=== PATIENT | male | born 1995 | race Caucasian/White ===

== ENCOUNTER 2019-12-20 21:01 | Emergency (ER) | payer OTHER ==
[~2019-12-20] VITALS: Ht 175.3 cm; Wt 72.7 kg
[2019-12-20] MEDS ORDERED: CLAR10CA3 PO (21:12)
[2019-12-20] MEDS ORDERED: NS 1,000 ML IV ONE (21:45)
[2019-12-20 21:51] LABS: BASO % 0.4 % (0.0-1.0); EOS % 0.3 % (0.0-3.0); HEMATOCRIT 44.7 % (42.0-52.0); HEMOGLOBIN 15.9 g/dl (13.5-17.5); LYMPH # 1.5 10^3/uL (1.5-5.0); LYMPH % 14.8 % (24.0-44.0); MEAN CORPUSCULAR HEMOGLOBIN 32.1 pg (27.0-33.0); MEAN CORPUSCULAR HGB CONC 35.6 g/dl (32.0-36.5); MEAN CORPUSCULAR VOLUME 90.3 fl (80.0-96.0); MONO # 0.7 10^3/uL (0.0-0.8); MONO % 6.5 % (0.0-5.0); NEUTROPHILS % 77.8 % (36.0-66.0); PLATELET COUNT, AUTOMATED 206 10^3/uL (150-450); RED BLOOD COUNT 4.95 10^6/uL (4.30-6.10); WHITE BLOOD COUNT 10.3 10^3/uL (4.0-10.0)
[2019-12-20 22:00] LABS: INR 0.95; PROTHROMBIN TIME 12.9 SECONDS (11.8-14.0)
[2019-12-20 22:04] LABS: D-DIMER QUANT < 270 ng/ml (<500)
[2019-12-20 22:15] VITALS: BP 143/83
[2019-12-20 22:15] LABS: AMPHETAMINES LEVEL URINE NEGATIVE (NEGATIVE); BARBITURATES URINE NEGATIVE (NEGATIVE); BENZODIAZEPINES URINE NEGATIVE (NEGATIVE); CANNABINOIDS URINE NEGATIVE (NEGATIVE); COCAINE METABOLITE URINE NEGATIVE (NEGATIVE); METHADONE URINE NEGATIVE (NEGATIVE); OPIATES URINE NEGATIVE (NEGATIVE); PHENCYCLIDINE URINE NEGATIVE (NEGATIVE)
[2019-12-20 22:23] LABS: ALBUMIN 4.7 GM/DL (3.2-5.2); ALT/SGPT 54 U/L (12-78); BILIRUBIN,DIRECT 0.3 MG/DL (0.0-0.2); BILIRUBIN,TOTAL 1.1 MG/DL (0.2-1.0); BLOOD UREA NITROGEN 10 MG/DL (7-18); CALCIUM LEVEL 9.6 MG/DL (8.5-10.1); CARBON DIOXIDE LEVEL 23 MEQ/L (21-32); CHLORIDE LEVEL 103 MEQ/L (98-107); CK-MB VALUE MASS 2.6 NG/ML (<3.6); CPK CREATINE PHOSPHOKINASE 598 U/L (39-308); CREATININE FOR GFR 1.15 MG/DL (0.70-1.30); GLOMERULAR FILTRATION RATE > 60.0 (>60); GLUCOSE, FASTING 80 MG/DL (70-100); MAGNESIUM LEVEL 1.7 MG/DL (1.8-2.4); MB/CK RELATIVE INDEX 0.43 (< OR =4); POTASSIUM SERUM 3.3 MEQ/L (3.5-5.1); SODIUM LEVEL 136 MEQ/L (136-145); THYROID STIMULATING HORMONE 0.947 uIU/ML (0.358-3.740); TOTAL PROTEIN 7.8 GM/DL (6.4-8.2); TROPONIN I < 0.02 NG/ML (< 0.10)
[2019-12-20] MEDS ORDERED: MAG SULF 1GM/100ML (MAG RUN) 1 GM in IV 1 EA IV ONE (22:30)
[2019-12-20] MEDS ORDERED: POTASSIUM CHLORIDE 10 MEQ SR TABLET PO ONE (22:45)
[2019-12-20] MEDS ORDERED: LORazepam 2 MG/ML VIAL IV STA (22:59)
--- NOTE | 2019-12-20 23:02 | REPVR ---
PROCEDURE INFORMATION: Exam: XR Chest, 1 View Exam date and time: 12/20/2019 9:31 PM Age: 24 years old Clinical indication: Cough and dyspnea; Additional info: Dyspnea/cough TECHNIQUE: Imaging protocol: XR of the chest Views: 1 view. COMPARISON: No relevant prior studies available. FINDINGS: Lungs: Unremarkable. No consolidation. Pleural space: Unremarkable. No pleural effusion. No pneumothorax. Heart/Mediastinum: Unremarkable. No cardiomegaly. Bones/joints: Unremarkable. IMPRESSION: No acute findings. Electronically signed by: Janes Floyd On 12/20/2019 23:01:44 PM
--- NOTE | 2019-12-24 21:33 | ECGEPIP ---
[facility] - ED Test Date: 2019-12-20 Pat Name: MABLE MAXWELL Department: Room: - Gender: Male [employer] Consultant: glynn : 1995 Requested By: FARIDA López Order Number: [id number] Reading MD: Caroline Patel Measurements Intervals [place] Rate: 92 P: 76 [place]: 146 QRS: 57 QRSD: 89 T: 50 QT: 340 QTc: 422 Interpretive Statements SINUS RHYTHM WITH FREQUENT VENTRICULAR PREMATURE COMPLEXES ABNORMAL RHYTHM ECG SEE SCANNED DOWNTIME REPORT
== END 2019-12-21 00:12 | disposition home or self-care (01) ==
LOC: M ED 21:01
DX: R00.2 Palpitations (principal); R06.02 Shortness of breath; I49.3 Ventricular premature depolarization; Z79.899 Other long term (current) drug therapy
CPT/HCPCS: 71045; 80048; 80076; 80307; 82550; 82553; 83735; 84443; 85025; 85379; 85610; 93005; 93041; 94760; 96360; 99284; J3475